=== PATIENT | female | born 1985 | race American Indian/Alaskan Native ===

== ENCOUNTER 2016-12-17 23:26 | Emergency (ER) | payer SELFPAY ==
[2016-12-17 23:53] VITALS: BP 140/82
--- NOTE | 2016-12-18 18:59 | ED Elopement Review ---
ED Pt Elopement review - Call Back decision Pt Call Back Decision: Call pt to return to ED CK (if the patient is still symptomatic she should return to the ED. Tachycardia should be addressed)
== END 2016-12-18 00:37 | disposition left against medical advice (07) ==
LOC: ED 23:26
DX: T78.40XA Allergy, unspecified, initial encounter (principal); X58.XXXA Exposure to other specified factors, initial encounter; Z53.21 Procedure and treatment not carried out due to patient leaving prior to being seen by health care provider
CPT/HCPCS: 93005; 93010